=== PATIENT | female | born 1945 | race Caucasian/White ===

== ENCOUNTER 2018-04-01 05:03 | Inpatient (IN) ==
[2018-03-27 15:47] LABS: Appearance,Urine HAZY; Bilirubin,Urine NEG (NEG); Color,Urine YELLOW; Glucose,Urine (UA) NEGATIVE (NEG); Leukocyte Esterase,Urine NEG /uL (NEG); Protein,Urine NEG (NEG); Specific Gravity,Urine 1.023 (1.000-1.035); Urine Blood NEG mg/dL (<0.03)
[2018-03-27 16:24] LABS: Basophils # (Auto) 0 K/mcL (0.0-0.3); Basophils % (Auto) 0.6 % (0.0-2.0); Eosinophils # (Auto) 0.2 K/mcL (0.0-0.7); Granulocytes % (Auto) 49.1 % (38.0-78.0); Lymphocytes # (Auto) 2.6 K/mcL (1.5-4.8); Lymphocytes % (Auto) 38.9 % (15.5-49.0); Mean Cell Volume 85.2 fL (80.0-100.0); Mean Corpuscular HGB Conc 33.4 g/dL (31.0-36.0); Mean Corpuscular Hemoglobin 28.4 pg (26.0-34.0); Monocytes # (Auto) 0.6 K/mcL (0.1-0.9); Monocytes % (Auto) 8.4 % (1.0-12.0); Platelet Count 267 K/mcL (140-440); RBC 5.17 M/mcL (4.00-5.20)
[2018-03-27 18:24] LABS: ALT/SGPT 11 U/l (0-40); Albumin/Globulin Ratio 1.1 (1.0-2.3); Alkaline Phosphatase 126 U/L (39-117); Blood Urea Nitrogen 14 mg/dl (8-23)
[~2018-04-01 05:03] MED LIST: ceFAZolin 1 GM VIAL IV SCH
[2018-04-01] MEDS ORDERED: FAMOTIDINE/PF 20 MG/2 ML VIAL IV ONE (07:38)
[2018-04-01] MEDS ORDERED: ePHEDrine 50 MG/ML AMPUL IV ONE (07:38)
[2018-04-01] MEDS ORDERED: PANTOPRAZOLE 40 MG VIAL IV ONE ×2 (07:38→08:57)
[2018-04-01] MEDS ORDERED: PROPOFOL 200 MG/20 ML VIAL IV ONE (07:38)
[2018-04-01] MEDS ORDERED: SUCCINYLCHOLINE 20 MG/ML ML IV ONE (07:38)
[2018-04-01] MEDS ORDERED: ONDANSETRON 4 MG/2 ML VIAL ONE (07:38)
[2018-04-01] MEDS ORDERED: DEXAMETHASONE 10 MG/ML VIAL ONE (07:38)
[2018-04-01] MEDS ORDERED: LIDOCAINE HCL/PF 100 MG/5 ML SYRINGE IV ONE (07:38)
[2018-04-01] MEDS ORDERED: fentaNYL 250 MCG/5 ML VIAL IV ONE (07:38)
[2018-04-01] MEDS ORDERED: MIDAZOLAM 5 MG/5 ML VIAL ONE (07:38)
[2018-04-01] MEDS ORDERED: THROMBIN (BOVINE) 5,000 UNIT VIAL TOPICAL ONE (08:24)
[2018-04-01] MEDS ORDERED: HEPARIN 20,000 UNIT/ML VIAL IR ONE (08:25)
[2018-04-01] MEDS ORDERED: CALCIUM GLUCONATE 4.65 MEQ/10 ML VIAL TOPICAL ONE (08:25)
[2018-04-01] MEDS ORDERED: GELATIN SPONGE,ABSORBABLE 1 GM POWDER TOPICAL ONE (09:05)
[2018-04-01] MEDS ORDERED: GELATIN SPONGE,ABSORBABLE 1 EACH SPONGE TOPICAL ONE (09:05)
[2018-04-01] MEDS ORDERED: ceFAZolin 1 GM VIAL IV ONE (10:58)
[2018-04-01] MEDS ORDERED: BENZOCAINE/MENTHOL 1 LOZENGE PO PRN ×2 (11:35→12:24)
[2018-04-01] MEDS ORDERED: ACETAMINOPHEN 1,000 MG/100 ML BOTTLE IV ONE (11:35)
[2018-04-01] MEDS ORDERED: PROMETHAZINE 25 MG/ML VIAL IV PRN (11:35)
[2018-04-01] MEDS ORDERED: LACTATED RINGERS 250 ML IV PRN (11:35)
[2018-04-01] MEDS ORDERED: FLUMAZENIL 0.1 MG/ML ML IV PRN (11:35)
[2018-04-01] MEDS ORDERED: IPRATROPIUM/ALBUTEROL 3 ML AMPUL.NEB NEB PRN (11:35)
[2018-04-01] MEDS ORDERED: ONDANSETRON 4 MG/2 ML VIAL IV PRN (11:35)
[2018-04-01] MEDS ORDERED: HYDROmorphone 2 MG/ML VIAL IV PRN (11:35)
[2018-04-01] MEDS ORDERED: NALOXONE HCL 0.4 MG/ML VIAL IV PRN (11:35)
[2018-04-01] MEDS ORDERED: diphenhydrAMINE 50 MG/ML VIAL IV PRN (11:35)
[2018-04-01] MEDS ORDERED: MEPERIDINE 25 MG/ML SYRINGE IV PRN (11:35)
[2018-04-01] MEDS ORDERED: LACTATED RINGERS 1,000 ML IV SCH (11:45)
[2018-04-01] MEDS ORDERED: BUPIVACAINE 0.25% 50 ML VIAL IJ ONE (12:15)
[2018-04-01] MEDS ORDERED: GUM MASTIC/STORAX/MSAL/ALCOHOL 1 DOSE DROPERETTE TOPICAL ONE (12:15)
[2018-04-01] MEDS ORDERED: traMADol 50 MG TABLET PO PRN (12:24)
[2018-04-01] MEDS ORDERED: ONDANSETRON ODT 4 MG TABLET SL PRN (12:24)
[2018-04-01] MEDS ORDERED: METHOCARBAMOL 750 MG TABLET PO PRN (12:24)
[2018-04-01] MEDS ORDERED: BISACODYL 10 MG SUPP.RECT PR PRN (12:24)
[2018-04-01] MEDS ORDERED: POLYETHYLENE GLYCOL 3350 17 GM PACKET PO PRN (12:24)
--- NOTE | 2018-04-01 12:24 | Brief Operative Note ---
Date of procedure: 04/01/18 Pre-op diagnosis: pseudoarthrosis t11/12 Post-op diagnosis: same Procedure: explore fusion and failed hardware revision instrumentation and fusion Grafts/Implants: Yes (osteocel, nuvasive hardware) Anesthesia: GETA Complications: none Surgeon: Ankit Francis Flight Nurse: Dima Casey Estimated blood loss (cc): 250 Specimens Removed/Pathology: none sent Condition: stable Disposition: PACU
[2018-04-01] MEDS ORDERED: rOPINIRole 0.25 MG TABLET PO PRN (12:31)
[2018-04-01] MEDS ORDERED: ALPRAZolam 0.5 MG TABLET PO PRN (12:31)
[2018-04-01] MEDS ORDERED: HYDROmorphone PCA 30 MG/30 ML PCA.VIAL IV PRN (12:32)
[2018-04-01] MEDS: fentaNYL 100 MCG/2 ML VIAL IV PRN ×4 (13:14→13:45)
[2018-04-01] MEDS ORDERED: HYDROmorphone 2 MG/ML VIAL ONE (14:20)
[2018-04-01] MEDS: oxyCODONE HCL 5 MG TABLET PO SCH ×3 (14:21→21:28)
[2018-04-01] MEDS: 0.9 % SODIUM CHLORIDE 1,000 ML IV SCH (14:22)
[2018-04-01] MEDS: GABAPENTIN 300 MG CAPSULE PO SCH ×2 (15:44→21:27)
[2018-04-01] MEDS: CELECOXIB 200 MG CAPSULE PO SCH (21:27)
[2018-04-02] MEDS: ceFAZolin 1 GM VIAL IV SCH ×3 (00:18→07:00)
[2018-04-02] MEDS: 0.9 % SODIUM CHLORIDE 1,000 ML IV SCH ×3 (01:06→17:31)
[2018-04-02] MEDS: OMEPRAZOLE 20 MG CAPSULE PO SCH (06:59)
[2018-04-02 07:32] LABS: Blood Urea Nitrogen 11 mg/dl (8-23)
--- NOTE | 2018-04-02 07:43 | Orthopedic Progress Note ---
Subjective Patient information: Note initiated : 04/02/18 at 7:40 am Service Date, if different from initiated Date: [] Patient: Brenda King 73 y/o F admitted on 04/01/18 for L2-3 Exploration of Fusion and Revision of Hardwar. Chief Complaint: [] No complaints this am. Numbness L thumb near A line Objective Vital signs: Vital Signs Temp Pulse Resp BP Pulse Ox 04/02/18 06:49 97.8 F 75 14 116/69 97 04/02/18 04:00 98.2 F 74 10 L 97 04/02/18 00:00 97.5 F 76 12 113/71 96 04/01/18 20:00 96.9 F L 78 12 142/68 96 04/01/18 15:28 116/63 92 04/01/18 14:59 116/68 93 04/01/18 14:46 20 04/01/18 14:43 101/65 91 04/01/18 14:29 115/62 92 04/01/18 14:15 93 04/01/18 14:13 124/76 92 04/01/18 13:58 132/80 91 04/01/18 13:46 97 F 80 13 132/84 04/01/18 13:28 73 19 132/69 96 04/01/18 13:13 96.8 F L 79 11 L 130/74 94 04/01/18 13:03 96.9 F L 80 14 134/71 100 04/01/18 12:58 80 11 L 132/67 100 04/01/18 12:53 80 14 134/68 100 04/01/18 12:48 97 F 79 18 134/70 97 Intake and Output 04/01/18 04/02/18 04/02/18 21:59 05:59 13:59 Intake Total 100 / 100 1989 / 1989 Output Total 58 / 58 1063 / 1063 Balance 42 / 42 927 / 927 Intake: IV 100 / 100 1000 / 1000 Sodium Chloride 0.9% 1,000 ml @ 1000 / 1000 100 mls/hr IV .Q10H [facility] Rx#: [id number] Oral 990 / 990 Output: Drainage 58 / 58 Back 58 / 58 Urine Catheter Amount 1050 / 1050 Other: Weight 200 lb Intake & Output: Intake & Output 04/01/18 04/02/18 04/02/18 21:59 05:59 13:59 Intake Total 100 / 100 1989 Output Total 58 1063 / 1063 Balance 42 927 / 927 Weight 200 lb Intake: IV 100 / 100 1000 / 1000 Sodium Chloride 0.9% 1,000 ml @ 1000 / 1000 100 mls/hr IV .Q10H [facility] Rx#: [id number] Oral 990 / 990 Output: Drainage Back Urine Catheter Amount 1050 / 1050 Dressing: Yes clean, Yes dry, Yes intact Weight bearing status: full Neurological exam IM: Yes neurovascular intact - Labs CBC & BMP: 04/02/18 04:50 04/02/18 04:50 Labs: Orthopedic Labs 03/27/18 14:18 PT 13.4 INR 1.0 04/02/18 03/27/18 04:50 14:19 Hgb 11.3 L 14.7 Hct 33.6 L 44.0 Assessment and Plan (1) History of spinal fusion status post exploration of fusion and revision instrumentation. mobilize with pt Status: Chronic Comment: Anterior and posterior revision fusion T11-12 pseudoarthrosis
[2018-04-02] MEDS: LOSARTAN 50 MG TABLET PO SCH (08:22)
[2018-04-02] MEDS: oxyCODONE/APAP 5/325MG TABLET PO PRN ×4 (08:22→22:52)
[2018-04-02] MEDS: GABAPENTIN 300 MG CAPSULE PO SCH ×3 (08:22→20:13)
[2018-04-02] MEDS: ESTRADIOL 1 MG TABLET PO SCH (08:22)
[2018-04-02] MEDS: CELECOXIB 200 MG CAPSULE PO SCH ×2 (08:22→20:13)
[2018-04-02] MEDS: SENNOSIDES/DOCUSATE SODIUM 1 TAB TABLET PO SCH (08:22)
[2018-04-02] MEDS: HYDROCHLOROTHIAZIDE 25 MG TABLET PO SCH (08:22)
[2018-04-02] MEDS: SERTRALINE 50 MG TABLET PO SCH (08:23)
[2018-04-02] MEDS: ROSUVASTATIN 10 MG TABLET PO SCH (08:23)
[2018-04-02] MEDS: POTASSIUM CHLORIDE 10 MEQ TABLET PO SCH (08:23)
[2018-04-02] MEDS: VITAMIN E (DL,TOCOPHERYL ACET) 400 UNIT CAPSULE PO SCH (08:23)
--- NOTE | 2018-04-02 09:10 | Operative Note ---
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 POSTOPERATIVE DIAGNOSIS: Hardware failure with suspected pseudoarthrosis T11-12. OPERATION PROPOSED: Exploration of fusion; removal of segmental instrumentation and re-instrumentation with a posterior and posterolateral fusion after takedown of pseudoarthrosis; aspiration of osteoprogenitor cells, bilateral iliac crest. OPERATION PERFORMED: Exploration of fusion; removal of segmental instrumentation and re-instrumentation with a posterior and posterolateral fusion after takedown of pseudoarthrosis; aspiration of osteoprogenitor cells, bilateral iliac crest. OPERATING SURGEON: Isai Francis M.D. DETACHER: Dima Casey PA-C. INDICATIONS: This lady has had multiple extensive surgeries. She had an obvious pseudoarthrosis at T11-12 and was taken to the operating room 6 months ago with an anterior interbody cage and her rods that had failed were repaired end-to-end. She has now had increased pain. Her mala has failed on the right side, and it is suspect that she has a pseudoarthrosis. OPERATION IN DETAIL: Informed consent was obtained. She was taken to the operating room where she was provided with appropriate anesthetic and prophylactic antibiotic which were repeated throughout the case. A midline incision was made. I ellipsed out a portion of the old wound and extended the wound T10 through essentially the sacrum. I carried the incision down the midline and then when encountering midline structures I turned laterally exposing the posterior and posterolateral aspect of the spine. I encountered the hardware which was exposed of soft tissue. I removed the inferior broken segment of the mala on the right and I then cut the mala just below a cross connector in the low thoracic spine. This other segment of mala was removed. I removed the end-to-end connectors on the left. I debrided soft tissue and bone from beneath this connector, and this is where there was potentially the pseudoarthrosis on the left. The right side actually appeared to be very stable and there was potentially fusion, and the fusion mass on the right seemed to potentially have extended all the way above T11 and T12. I, nonetheless, felt it important to address the pseudoarthrosis on the left and to augment fusion on the right. I removed pedicle screws on the right, although I left the lumbar screws L4-5 and S1. I removed the screw in and about the T9 region and replaced this with a fresh pedicle screw. A second pedicle screw was placed at T11 on the right, and I placed a new pedicle screw at L3 on the right. This gave me good fixation of the fresh mala above and below this T11-12 pseudoarthrosis region. On the left I performed additional decortication. I irrigated extensively. I, again, fish-scaled the bone with a Capener gouge. I packed morcellized graft into and beneath this cross connector spanning T11 and 12. A new end-to-end connector was applied and torqued into position. I then went above and below the pedicle screws and placed a [id number] connector, and a new mala was placed across this segment leaving two rods on the left side. Again, I had extensively packed morcellized bone graft. I packed additional bone graft on the right after decorticating along this posterolateral aspect of the fusion mass. I tightened and torqued the rods into position. I had aspirated the iliac crest bilaterally for osteoprogenitor cells, and this was passed to the back table where it was spun down for osteoprogenitor cells. This had been combined with our Osteocel and used for the bone grafting. The wounds had been irrigated extensively with pulsatile lavage and Irrisept prior to placing any bone graft. I ensured that all the rods were tightened and torqued into position. I closed over a deep drain with an 0 Vicryl in interrupted fashion, 2-0 Vicryl inverted deep dermal, and a running subcuticular. The procedure was tolerated well. No complications. Estimated blood loss was 300 mL. GDD:reji Job ID: [id number] Doc ID: [id number] Ankit Francis MD
[2018-04-02] MEDS: oxyCODONE HCL 5 MG TABLET PO SCH ×5 (09:40→20:13)
[2018-04-03] MEDS: oxyCODONE/APAP 5/325MG TABLET PO PRN (05:05)
--- NOTE | 2018-04-03 06:43 | Orthopedic Progress Note ---
Subjective Patient information: Note initiated : 04/03/18 at 6:41 am Service Date, if different from initiated Date: [] Patient: Brenda King a 73 y/o F admitted on 04/01/18 for L2-3 Exploration of Fusion and Revision of Hardwar. Chief Complaint: [S/P L2-3 exploration of fusion with revision of hardware] Ms. King is doing quite well and noted marked improvement of her low back pain compared to pre-operatively. No complaints. Denies any lower extremity weakness or paresthesias. Objective Vital signs: Vital Signs Temp Pulse Pulse Resp BP Pulse Ox 04/03/18 04:00 97.7 F 70 14 110/60 04/02/18 22:53 97.5 F 72 14 122/60 04/02/18 19:06 98.0 F 72 12 136/64 04/02/18 16:00 97.6 F 77 14 155/78 93 04/02/18 12:00 97.5 F 80 14 114/66 94 04/02/18 06:49 97.8 F 75 14 116/69 97 Intake and Output 04/02/18 04/03/18 04/03/18 21:59 05:59 13:59 Intake Total 360 / 360 450 / 450 Output Total 75 / 75 50 / 50 Balance 285 / 285 400 / 400 Intake: Oral 360 / 360 450 / 450 Output: Drainage 75 / 75 50 / 50 Back 75 / 75 50 / 50 Other: Meal Dinner Percent of Meal Consumed 100% # Voids 1 1 Weight 202 lb Intake & Output: Intake & Output 04/02/18 04/03/18 04/03/18 21:59 05:59 13:59 Intake Total 360 / 360 450 / 450 Output Total 75 / 75 50 / 50 Balance 285 / 285 400 / 400 Weight 202 lb Intake: Oral 360 / 360 450 / 450 Output: Drainage 75 / 75 50 / 50 Back 75 / 75 50 / 50 Other: Meal Dinner Percent of Meal Consumed 100% # Voids 1 1 Incision: Yes healing, Yes clean and dry Incision clean and dry: Yes Dressing: Yes clean, Yes dry, Yes intact Weight bearing status: as tolerated Neurological exam IM: Yes alert, Yes oriented X3, Yes motor sensory intact, Yes neurovascular intact Extremities exam IM: Yes neurovascular intact - Labs CBC & BMP: 04/03/18 04:30 04/02/18 04:50 Labs: Orthopedic Labs 03/27/18 14:18 PT 13.4 INR 1.0 04/03/18 04/02/18 03/27/18 04:30 04:50 14:19 Hgb 10.7 L 11.3 L 14.7 Hct 31.4 L 33.6 L 44.0 Assessment and Plan (1) History of spinal fusion D/c KATRINA drain and IV. Ambulate today with brace. Discharge to SNF tomorrow am. Status: Chronic Comment: Anterior and posterior revision fusion T11-12 pseudoarthrosis
[2018-04-03] MEDS: CELECOXIB 200 MG CAPSULE PO SCH ×2 (08:08→20:58)
[2018-04-03] MEDS: OMEPRAZOLE 20 MG CAPSULE PO SCH (08:08)
[2018-04-03] MEDS: HYDROCHLOROTHIAZIDE 25 MG TABLET PO SCH (08:09)
[2018-04-03] MEDS: LOSARTAN 50 MG TABLET PO SCH (08:09)
[2018-04-03] MEDS: GABAPENTIN 300 MG CAPSULE PO SCH ×3 (08:09→20:57)
[2018-04-03] MEDS: POTASSIUM CHLORIDE 10 MEQ TABLET PO SCH (08:10)
[2018-04-03] MEDS: VITAMIN E (DL,TOCOPHERYL ACET) 400 UNIT CAPSULE PO SCH (08:10)
[2018-04-03] MEDS: SERTRALINE 50 MG TABLET PO SCH (08:10)
[2018-04-03] MEDS: SENNOSIDES/DOCUSATE SODIUM 1 TAB TABLET PO SCH (08:10)
[2018-04-03] MEDS: ROSUVASTATIN 10 MG TABLET PO SCH (08:11)
[2018-04-03] MEDS: ESTRADIOL 1 MG TABLET PO SCH (08:11)
[2018-04-03] MEDS: oxyCODONE HCL 5 MG TABLET PO SCH ×5 (08:12→19:15)
[2018-04-04] MEDS: oxyCODONE/APAP 5/325MG TABLET PO PRN (01:16)
[2018-04-04] MEDS: OMEPRAZOLE 20 MG CAPSULE PO SCH (06:43)
[2018-04-04] MEDS: CELECOXIB 200 MG CAPSULE PO SCH (07:37)
[2018-04-04] MEDS: SERTRALINE 50 MG TABLET PO SCH (07:37)
[2018-04-04] MEDS: GABAPENTIN 300 MG CAPSULE PO SCH (07:38)
[2018-04-04] MEDS: SENNOSIDES/DOCUSATE SODIUM 1 TAB TABLET PO SCH (07:38)
[2018-04-04] MEDS: LOSARTAN 50 MG TABLET PO SCH (07:38)
[2018-04-04] MEDS: ESTRADIOL 1 MG TABLET PO SCH (07:38)
[2018-04-04] MEDS: HYDROCHLOROTHIAZIDE 25 MG TABLET PO SCH (07:38)
[2018-04-04] MEDS: POTASSIUM CHLORIDE 10 MEQ TABLET PO SCH (07:38)
[2018-04-04] MEDS: VITAMIN E (DL,TOCOPHERYL ACET) 400 UNIT CAPSULE PO SCH (07:39)
[2018-04-04] MEDS: oxyCODONE HCL 5 MG TABLET PO SCH ×2 (07:39→10:40)
--- NOTE | 2018-04-04 07:42 | Discharge Summary ---
Providers - Providers Patient information: Note initiated : 04/04/18 at 7:39 am Service Date, if different from initiated Date: [] Patient: Brenda King 73 y/o F admitted on 04/01/18 for L2-3 Exploration of Fusion and Revision of Hardwar. Chief Complaint: [] has made appropriate post op progress no complications Date of admission: 04/01/18 Discharge date: 04/04/18 Attending physician: Ankit Francis Hospitalization Hospital course: mobilized with pt uneventful Discharge diagnosis: pseudoarthrosis Exam - Exam Clean and dry: Yes Weight bearing status: full Ortho Discharge - Spine - Patient Instructions Discharge Diet: Regular Diet Activity: activity as tolerated Spine Protocol: Limit bending and stooping. No heavy lifting. Wear brace/collar at all times except when showering and sleeping. Dressing Care: May shower in 2 days Additional Dressing Instructions: May Shower 48 hours post-operative and replace with dry dressing after shower. - Problem Maintenance (1) History of spinal fusion Status: Chronic Comment: Anterior and posterior revision fusion T11-12 pseudoarthrosis - Follow Up Plan Follow Up Appointments: Dima Casey PA-C [Physician [employer]] - 04/16/18 1:50 pm Disposition: Xfer SNF Prognosis: Fair Rehab Potential: Fair I certify that the patient requires SNF services: Yes Overall status at discharge: patient is not back to baseline Pending Studies Resuscitation Status Full Code Diet Regular Diet Start SunApr 01 Dinner Alprazolam (Xanax) 1 mg PO HSP PRN PRN Reason: Anxiety Last Admin: 04/02/18 20:34 Dose: 1 mg Celecoxib (Celebrex) 200 mg PO BID [facility] Last Admin: 04/03/18 20:58 Dose: 200 mg Admin: 04/03/18 08:08 Dose: 200 mg Admin: 04/02/18 20:13 Dose: 200 mg Admin: 04/02/18 08:22 Dose: 200 mg Admin: 04/01/18 21:27 Dose: 200 mg Estradiol (Estrace) 1 mg PO QDAY [facility] Last Admin: 04/03/18 08:11 Dose: 1 mg Admin: 04/02/18 08:22 Dose: 1 mg Gabapentin (Neurontin) 600 mg PO TID [facility] Last Admin: 04/03/18 20:57 Dose: 600 mg Admin: 04/03/18 14:24 Dose: 600 mg Admin: 04/03/18 08:09 Dose: 600 mg Admin: 04/02/18 20:13 Dose: 600 mg Admin: 04/02/18 14:43 Dose: 600 mg Admin: 04/02/18 08:22 Dose: 600 mg Admin: 04/01/18 21:27 Dose: 600 mg Admin: 04/01/18 15:44 Dose: Not Given Hydrochlorothiazide (Oretic) 25 mg PO QDAY [facility] Last Admin: 04/03/18 08:09 Dose: 25 mg Admin: 04/02/18 08:22 Dose: 25 mg Losartan Potassium (Cozaar) 100 mg PO QDAY [facility] Last Admin: 04/03/18 08:09 Dose: 100 mg Admin: 04/02/18 08:22 Dose: 100 mg [facility] Admin: 04/04/18 06:43 Dose: 20 mg Admin: 04/03/18 08:08 Dose: 20 mg Admin: 04/02/18 06:59 Dose: 20 mg Oxycodone HCl (Roxicodone) 5 mg PO 5XD [facility] Last Admin: 04/03/18 19:15 Dose: 5 mg Admin: 04/03/18 17:00 Dose: Not Given Admin: 04/03/18 14:24 Dose: 5 mg Admin: 04/03/18 10:51 Dose: 5 mg Admin: 04/03/18 08:12 Dose: Not Given Admin: 04/02/18 20:13 Dose: Not Given Admin: 04/02/18 17:13 Dose: Admin: 04/02/18 15:07 Dose: Admin: 04/02/18 11:13 Dose: Admin: 04/02/18 09:40 Dose: Admin: 04/01/18 21:28 Dose: Not Given Admin: 04/01/18 18:31 Dose: Not Given Admin: 04/01/18 14:21 Dose: Not Given Oxycodone/Acetaminophen (Percocet 5-325 Mg) 1 - 2 tab PO Q4HP PRN PRN Reason: PAIN LEVEL 3-6 Last Admin: 04/04/18 01:16 Dose: 1 tab Admin: 04/03/18 05:05 Dose: 1 tab Admin: 04/02/18 22:52 Dose: 1 tab Admin: 04/02/18 17:45 Dose: 1 tab Admin: 04/02/18 12:25 Dose: 2 tab Admin: 04/02/18 08:22 Dose: 2 tab Polyethylene Glycol (Miralax) 17 gm PO DAILYP PRN PRN Reason: Constipation Last Admin: 04/03/18 19:15 Dose: 17 gm Potassium Chloride (Kdur) 10 meq PO [facility] Last Admin: 04/03/18 08:10 Dose: 10 meq Admin: 04/02/18 08:23 Dose: 10 meq Rosuvastatin Calcium (Crestor) 2.5 mg PO QDAY [facility] Last Admin: 04/03/18 08:11 Dose: 2.5 mg Admin: 04/02/18 08:23 Dose: 2.5 mg Senna/Docusate Sodium (Senna Plus Tablet) 2 tab PO DAILY [facility] Last Admin: 04/03/18 08:10 Dose: 2 tab Admin: 04/02/18 08:22 Dose: 2 tab Sertraline HCl (Zoloft) 50 mg PO QDAY [facility] Last Admin: 04/03/18 08:10 Dose: 50 mg Admin: 04/02/18 08:23 Dose: 50 mg Vitamin E (Vitamin E) 800 unit PO DAILY [facility] Last Admin: 04/03/18 08:10 Dose: 800 unit Admin: 04/02/18 08:23 Dose: 800 unit Shift Summary 04/04/18 04:10 Shift Summary by Mary Anne Smith&Emily4. VSS. Up with back brace, FWW, and SBA. No IV in place. Surgical dressing to back is CDI. Patient stated that her last BM was 4 days ago; flatus present. Administered Miralax at 1915; no BM yet. Offered Bisacodyl suppository at 0400 vitals because patient verbalized that she is starting to feel uncomfortable. Patient stated that she would like to drink a cup of coffee first before a suppository. Plan is for patient to discharge to [facility]. Will update at bedside. Initialized on 04/04/18 04:10 - END OF NOTE
[2018-04-04] MEDS: ROSUVASTATIN 10 MG TABLET PO SCH (09:24)
== END 2018-04-04 11:07 | DRG 460 ==
LOC: MEDSUR 05:03
PROVIDERS: ADMIT Orthopaedic Surgery Orthopaedic Surgery of the Spine; ATTEND Orthopaedic Surgery Orthopaedic Surgery of the Spine